=== PATIENT | female | born 1940 | race Caucasian/White ===

== ENCOUNTER 2020-10-24 06:38 | Outpatient (REF) | payer BC, SELFPAY ==
[2020-10-24 11:36] LABS: Alanine Aminotransferase 27 U/L (0-31); Anion Gap 17 (12-20); Aspartate Amino Transferase 33 U/L (5-31); Blood Urea Nitrogen 24 mg/dL (9-16); Calcium 8.9 mg/dL (8.4-10.2); Carbon Dioxide 20 mmol/L (22-29); Chloride 105 mmol/L (96-108); Cholesterol 119 mg/dL; Estimated Glomerular Filt Rate > 60; Glucose Fasting 85 mg/dL (60-99); HDL Cholesterol 56 mg/dL; LDL Cholesterol Calculated 49 mg/dl; Potassium 4.6 mmol/L (3.3-5.1); Sodium 137 mmol/L (135-145); Triglycerides 74 mg/dL
== END 2020-10-24 06:39 | disposition home or self-care (01) ==
LOC: HO.HMGCLDS 06:38
PROVIDERS: PCP Internal Medicine; Visit Provider Internal Medicine
DX: I10 Essential (primary) hypertension (principal); I25.10 Atherosclerotic heart disease of native coronary artery without angina pectoris
CPT/HCPCS: 36415; 80048; 80061; 84450; 84460

== ENCOUNTER 2020-11-18 08:30 | Outpatient (REF) | payer BC, SELFPAY | END 2020-11-18 08:31 | disposition home or self-care (01) | LOC: HO.LAB 08:30 | PROVIDERS: PCP Internal Medicine; Referring Provider Internal Medicine; Visit Provider Surgery | DX: L98.9 Disorder of the skin and subcutaneous tissue, unspecified (principal) | CPT/HCPCS: 11442; 88304; 88305 ==

== ENCOUNTER 2020-11-18 09:51 | Outpatient (REF) | payer MEDICARE, SELFPAY | END 2020-11-18 09:52 | disposition home or self-care (01) | LOC: HO.LNP 09:51 | PROVIDERS: Visit Provider Surgery | DX: L98.9 Disorder of the skin and subcutaneous tissue, unspecified (principal) ==

== ENCOUNTER → 2020-11-26 08:47 | Outpatient (BNVA) | payer MEDICARE, SELFPAY | PROVIDERS: PCP Internal Medicine; Referring Provider Internal Medicine; Visit Provider Surgery | DX: Z48.817 Encounter for surgical aftercare following surgery on the skin and subcutaneous tissue (principal); Z87.2 Personal history of diseases of the skin and subcutaneous tissue | CPT/HCPCS: 99212 ==

== ENCOUNTER 2021-02-23 07:10 | Outpatient (REF) | payer MEDICARE, SELFPAY ==
[2021-02-23 12:07] LABS: Cholesterol 121 mg/dL; HDL Cholesterol 52 mg/dL; LDL Cholesterol Calculated 51 mg/dl; Triglycerides 91 mg/dL
== END 2021-02-23 07:11 | disposition home or self-care (01) ==
LOC: HO.HMGCLDS 07:10
PROVIDERS: PCP Internal Medicine; Visit Provider Internal Medicine Cardiovascular Disease
DX: I25.10 Atherosclerotic heart disease of native coronary artery without angina pectoris (principal)
CPT/HCPCS: 36415; 80061

== ENCOUNTER 2022-02-22 08:03 | Outpatient (REF) | payer MEDICARE, SELFPAY ==
[2022-02-22 12:31] LABS: Cholesterol 118 mg/dL; HDL Cholesterol 55 mg/dL; LDL Cholesterol Calculated 48 mg/dl; Triglycerides 78 mg/dL
== END 2022-02-22 08:04 | disposition home or self-care (01) ==
LOC: HO.HMGCLDS 08:03
PROVIDERS: PCP Internal Medicine; Visit Provider Internal Medicine Cardiovascular Disease
DX: I25.10 Atherosclerotic heart disease of native coronary artery without angina pectoris (principal)
CPT/HCPCS: 36415; 80061

== ENCOUNTER 2023-05-10 08:29 | Outpatient (REF) | payer MEDICARE, SELFPAY ==
[2023-05-10 12:51] LABS: Cholesterol 116 mg/dL (<200); HDL Cholesterol 55 mg/dL (>40); LDL Cholesterol Calculated 43 mg/dL (<100); Triglycerides 92 mg/dL (<150)
== END 2023-05-10 08:30 | disposition home or self-care (01) ==
LOC: HO.HMGCLDS 08:29
PROVIDERS: PCP Internal Medicine; Visit Provider Internal Medicine Cardiovascular Disease
DX: I10 Essential (primary) hypertension (principal)
CPT/HCPCS: 36415; 80061

== ENCOUNTER 2024-10-22 12:11 | Outpatient (AMB) | payer MEDICARE, SELFPAY ==
--- NOTE | 2024-10-22 12:14 | A.OFFPC_ITS ---
Vital Signs 10/22/24 12:15 10/22/24 12:51 Height 5 ft 2 in Weight 143 lb BMI 26.2 BP 158/82 H 135/80 Blood Pressure Location Lt brachial Rt brachial Position Sitting Sitting Respiration 16 Pulse 62 Pulse Source Pulse Oximeter Temp 97.6 F Temp Source Oral Pulse Oximetry (%) 97 Oxygen Delivery Method Room Air Oxygen Flow Rate 97.6 Intake Visit Reasons: re-est care Intake Note: Pt coming in to re establish care. Coordinate Measuring Equipment Operator Required: No Accompanied by: Self / Same As Patient Allergies No Known Allergies Allergy (Verified 10/22/24 12:32) Medication List - Last Reconciled 10/22/24 by Ximena Arita MD ascorbate calcium (vitamin C) 500 mg PO BID aspirin (Adult Low Dose Aspirin) 81 mg PO DAILY atorvastatin 80 mg PO DAILY flaxseed oil 1,000 mg PO DAILY glucosamine HCl 1,500 mg PO DAILY metoprolol succinate ER 25 mg PO DAILY multivitamin 1 tab PO DAILY Tobacco use date assessed: 10/22/24 Fall risk assessment: No Falls in past year Last assessed Fall Risk: 10/22/24 Dental Screening Dental Screen Date: 10/22/24 Did you have a dental visit in the last 12 months?: Yes Did you have a dental problem in the last 6 months where you did not have access to dental care?: No Was dental information given to patient?: Patient has dentist HPI re-est care HPI Details 84 year old lady here today to [facility] care with PCP.. She is a [employer] with past medical history history of coronary artery disease with STEMI, with angiogram showing mid to distal LAD artery rupture , with good runoff and non amenable to revascularization, on medical therapy, followed by her flour tester Dr. Andi Fulton at [facility], has history of hypertension, hyperlipidemia .. Has been compliant with taking her medications currently on aspirin 81 mg daily, atorvastatin 80 mg daily, metoprolol 25 mg ER 1 tablet daily, and flaxseed oil, and multivitamins . She has been feeling well, but was recently seen at the ER at [facility] last 06/07/2024 complaining of some chest pressure/chest tightness occurring intermittently , not accompanied by any shortness of breath, no dizziness and lasts approximately 1-1-1/2 minutes before spontaneously resolving , with all episodes occurring at rest. Patient reports that she has not had any further episodes since that visit at the ER. Has been feeling well with no complaints of chest pain, no fever, no cough, no shortness of breath or lightheadedness, no abdominal pain. Had labs done at [facility] [place] [place] on June 07, 2024 showed normal CBC, serum electrolytes, and renal function are within normal limits [facility] Medical History History of ST elevation myocardial infarction (STEMI) Skin lesion of face Flexor tenosynovitis of finger GERD (gastroesophageal reflux disease) Cataract Essential hypertension CAD (coronary artery disease), [place] coronary artery Surgical History History of excision of lesion History of appendectomy Hx laparoscopic cholecystectomy S/P tonsillectomy H/O arthroscopy of shoulder Hx of cataract surgery Family History Father CHF (congestive heart failure) Mother Stomach cancer Sister Ovarian cancer Social History Housing: Condominium Alcohol intake: never Patient Tobacco Use Status: Never used Tobacco e-Cigarette/Vaping Use: Never Used Second Hand Smoke Exposure: No Questionnaire PHQ-9 Over the last 2 weeks, how often have you been bothered by any of the following problems? 1. Little interest or pleasure in doing things: not at all 2. Feeling down, depressed, or hopeless: not at all 3. Trouble falling or staying asleep, or sleeping too much: not at all 4. Feeling tired or having little energy: not at all 5. Poor appetite or overeating: not at all 6. Feeling bad about yourself - or that you are a failure or have let yourself or your family down: not at all 7. Trouble concentrating on things, such as reading the newspaper or watching television: not at all 8. Moving or speaking so slowly that other people could have noticed. Or the opposite - being so fidgety or restless that you have been moving around a lot more than usual: not at all 9. Thoughts that you would be better off or of hurting yourself in some way: not at all Total score: 0 Depression Screening Interpretation: Negative Depression Screening Done: Yes 75845 - PHQ-9 Billing: Yes Source: Developed by Drs. Petey eB, Miracle Harris, Otilio Alvarado and colleagues, with an educational jessica from [employer]. Thrive Questionnaire Date Thrive assessed: 10/15/20 AMINAH-7 AMB Questionnaire AMINAH-7 Feeling nervous, anxious, or on edge: 0 = Not at all Not being able to stop or control worryin = Not at all Worrying too much about different things: 0 = Not at all Trouble relaxin = Not at all Being so restless that it is hard to sit still: 0 = Not at all Becoming easily annoyed or irritable: 0 = Not at all Feeling afraid as if something awful might happen: 0 = Not at all Total AMINAH-7 score (0-4 normal; 5-9 mild; 10-14 moderate; 15-21 severe): 0 Source: Developed by Drs. Petey Be, Miracle Harris, Otilio Alvarado and colleagues, with an educational jessica from [employer]. AMINAH-7 Assessment Billing AMINAH-7 Assessment Tool: AMINAH-7 Assessment 83988 Review of Systems Const Denies chills, Denies fatigue, Denies fever(s), Denies headache(s), Denies lethargy, Denies malaise and Denies poor appetite ENT Denies dizziness and Denies headache(s) Card Denies chest pain at rest, Denies chest pain with activity, Denies rapid heart rate, Denies irregular heart rhythm, Denies lightheadedness and Denies dyspnea Resp Denies cough and Denies dyspnea GI Reports no additional complaints, Denies hematochezia, Denies change in bowel habits and Denies nausea Neuro Denies dizziness and Denies headache(s) Endo Denies fatigue Physical exam (Primary Care) Vital Signs: Last Vital Signs Temp 97.6 F 10/22/24 12:15 Pulse 62 10/22/24 12:15 Resp 16 10/22/24 12:15 BP 135/80 10/22/24 12:51 Pulse Ox 97 10/22/24 12:15 Oxygen Delivery Method Room Air 10/22/24 12:15 Oxygen Flow Rate 97.6 10/22/24 12:15 BMI result Body Mass Index 26.2 Tobacco/Smoking Status: Tobacco use Status Tobacco use date assessed 10/22/24 10/22/24 12:21 Patient Tobacco Use Status Never used Tobacco 10/22/24 12:14 e-Cigarette/Vaping Use Never Used 10/22/24 12:14 PHQ-9: PHQ-9 Score PHQ-9: Total score 0 10/22/24 12:56 Depression Screening Interpretation: Negative Thrive Assessment: Date of Thrive Assessment Date Thrive assessed 10/15/20 10/22/24 12:14 Const General: comfortable and no acute distress Orientation/consciousness: patient oriented x3 HENMT Ears: external ears normal General nose exam: Normal external nose present, Normal nasal mucous membranes and turbinates present and No nasal discharge present Mouth: Normal oral and palatal mucosa present, oropharynx normal and moist mucous membranes Eyes General: appearance normal, both eyes and all related structures Conjunctivae: conjunctivae normal Pupils: Equal, round and reactive pupils present EOM: EOMs intact bilaterally Neck Neck: Yes full ROM, Yes no lymphadenopathy and Yes supple Resp Effort & Inspection: normal respiratory effort and able to speak in complete sentences Auscultation: clear to auscultation bilaterally Cardio Rate: regular rate Rhythm: regular rhythm Heart sounds: S1 normal heart sound present and S2 normal heart sound present GI Inspection: Yes normal to inspection Palpation (GI): Soft to palpation, nontender and no masses Auscultation: normal bowel sounds Neuro General: patient oriented x3, gait normal, tone normal, moves all extremities, Normal light touch and pain sensation and no focal motor deficits Cranial nerves: Yes Equal, round and reactive pupils present Cognition (Neuro): normal cognition Gait exam (Neuro): Normal gait present Extrem General: Yes full ROM, Yes no joint enlargement, Yes no clubbing, cyanosis or edema, Yes no pedal edema and Yes normal gait Psych Appearance: grossly normal Mental Status: mental status grossly normal Speech and movement: Normal speech and movement present Affect: normal affect Attitude: cooperative Thought process: Normal thought process present Thought content: Normal thought content present Coding Level of Care Code New Pt Level 4 (85693) Diagnoses CAD (coronary artery disease), [place] coronary artery I25.10 Essential hypertension I10 Additional Codes AMINAH-7 Assessment Billing - AMINAH-7 Assessment Tool: AMINAH-7 Assessment 10463 ([id number]) PHQ-9 - 88480 - PHQ-9 Billing: Yes ([id number]) Assessment & Plan Assessment & Plan (1) CAD (coronary artery disease), [place] coronary artery: Comment: Followed by Dr. Andi Fulton Code(s): I25.10 - Atherosclerotic heart disease of [place] coronary artery without angina pectoris Category: Medical Plan: Currently on aspirin 81 mg daily and atorvastatin 80 mg daily to get flaxseed oil and metoprolol succinate ER 25 mg daily (2) Essential hypertension: Code(s): I10 - Essential (primary) hypertension Category: Medical Plan: Blood pressure within acceptable limits, currently on metoprolol succinate ER 25 mg daily currently followed by [facility] Orders: Orders Glucose Fasting 10/23/24 I10 - Essential (primary) hypertension, I25.10 - Atherosclerotic heart disease of [place] coronary artery without angina pectoris, Z78.0 - Asymptomatic menopausal state Lipid Panel 10/23/24 I10 - Essential (primary) hypertension, I25.10 - Atherosclerotic heart disease of [place] coronary artery without angina pectoris, Z78.0 - Asymptomatic menopausal state Vitamin D 25-OH Total 10/23/24 I10 - Essential (primary) hypertension, I25.10 - Atherosclerotic heart disease of [place] coronary artery without angina pectoris, Z78.0 - Asymptomatic menopausal state
[2024-10-22 12:15] VITALS: BP 158/82; PULSE 62; RESP 16; TEMP 36.4; O2SAT 97; BMI 26.2
[2024-10-22 12:51] VITALS: BP 135/80
--- OUTSIDE RECORDS SUMMARY | 2024-10-22 13:17 | XMS_ITS | Clinical Summary ---
Author Organization [facility] Address [address] [place] [address] Phone Care Team Providers Care Disability Insurance Hearing Officer Name Role Phone Ximena Arita MD Primary Care Provider Allergies No known active allergies Medications ASPIRIN ORAL Take 81 mg by mouth daily. Active HAWTHORN ORAL 1 tab daily Acti ve glucosamine/cho ndroitin/C/Cole (GLUCOSAMINE 1500 COMPLEX ORAL) 3 tabs daily Active flaxseed oiL 1,000 mg capsule 1 capsule tid Active MULTIVITAMIN ORAL 1 tab 2-3x daily Active ascorbic acid (VITAMIN C ORAL) VITAMIN C 500 MG OR TABS 1 TABLET TWICE DAILY Active turmeric (CURCUMIN MISC) 1,000 mcg 1 (one) time each day. Active metoprolol succinate (TOPROL-XL) 25 mg 24 hr tablet Take 1 tablet by mouth once daily 90 tablet 3 04/15/2024 Active atorvastatin (LIPITOR) 80 mg tablet Take 1 tablet by mouth once daily 90 tablet 3 04/15/2024 Active Active Problems Problem Noted Date Diagnosed Date Hypercholesterolemia 03/17/2024 Assessment & Plan (03/18/2024 4:30 PM EST): Pt doing well on high-dose atorvastatin therapy. LDL 43 mg/dl. No change. Orders: ECG 12 lead Coronary artery disease invo lving [place] coronary artery of [place] heart without angina pectoris 09/11/2020 Assessment & Plan (03/18/2024 4:30 PM EST): Known CAD, prior LAD PCI, residual mid-vessel moderate lesion. No active angina. Continue secondary prevention. Orders: ECG 12 lead Essential hypertension 04/07/2008 Assessment & Plan (03/18/2024 4:30 PM EST): BP has generally been well controlled. 140/68 today, HR 56. Continue to monitor. No changes in Rx today. Orders: ECG 12 lead Gastroesophageal reflux disease without esophagi tis 04/07/2008 Assessment & Plan (03/18/2024 4:30 PM EST): No ongoing symptoms of GERD. Continue dietary approach. Orders: ECG 12 lead Surgical History Surgery Date Site/Laterality Comments APPENDECTOMY PROCEDURE: HISTORICAL APPENDECTOMY TONSILLECTOMY PROCEDURE: HISTORICAL TONSILLECTOMY SHOULDER SURGERY PROCEDURE: HISTORICAL SHOULDER SURGERY Family History Medical History Relation Name Comments Heart failure Father Other cancer Mother Stomach Other cancer Sister 1 Ovarian Relation Name Status Comments Father Mother Sister 1 Sister 2 Social History Tobacco Use Types Packs/Day Years Used Date Smoking Tobacco: Never Smokeless Tobacco: Never Alcohol Use Standard Drinks/Week Comments No 0 (1 standard drink = 0.6 oz pur e alcohol) Comments Unknown Sex and Gender Information Value Date Recorded Sex Assigned at Not on file Legal Sex Female 6:04 PM EST Gender Identity Not on file Sexual Orientation Not on file Obstetrics History Last Filed Vital Signs Vital Sign Reading Time Taken Comments Blood Pressure 140/68 03/18/2024 3:32 PM EST Pulse 57 03/18/2024 3:32 PM EST Temperature - - Respiratory Rate - - Oxygen Saturation 99% 03/18/2024 3:32 PM EST Inhaled Oxygen Concentration - - Weight 65 kg (143 lb 3.2 oz) 03/18/2024 3:32 PM EST Height 157.5 cm (5' 2 ) 03/18/2024 3:32 PM EST Body Mass Index 26.19 03/18/2024 3:32 PM EST Plan of Treatment Health Maintenance Due Date Last Done Comments DTaP,Tdap,and Td Vaccines (1 - Tdap) 1959 Pneumococcal Vaccine: 50+ Years (1 of 1 - PCV) 1989 Zoster Vaccines (1 of 2) 1989 RSV Immunization Adult Patients (1 - 1-dose 75+ series) 2014 Falls Risk Assessment 03/05/2022 Medicare Annual Wellness Visit 03/05/2022 Osteoporosis Screening (Bone Density Screening) 03/05/2022 Social Influencers of Health Screening 03/05/2022 Hypertension/CHF/CAD Annual BMP Blood Test 03/12/2022 Depression Screening 04/03/2024 COVID-19 Vaccine ( season) 2024 12/09/2023, 12/29/2022, 03/02/2022, Additional history exists Influenza Vaccine (#1) 2024 Cholesterol Screening (Lipid Panel) 05/10/2028 05/10/2023 HIB Vaccines Aged Out No longer eligi ble based on patient's age to complete this topic HPV Vaccines Aged Out No longer eligi ble based on patient's age to complete this topic Hepatitis A Vaccines Aged Out No long er eligible based on patient's age to complete this topic Hepatitis B Vaccines Aged Out No long er eligible based on patient's age to complete this topic IPV Vaccines Aged Out No longer eligi ble based on patient's age to complete this topic MMR Vaccines Aged Out No longer eligi ble based on patient's age to complete this topic Meningococcal ACWY Vaccine Aged Out N o longer eligible based on patient's age to complete this topic Meningococcal B Vaccine Aged Out No l onger eligible based on patient's age to complete this topic RSV Immunization Patients Under 20 months Aged Out No longer eligible based on patient's age to complete this topic Varicella Vaccines Aged Out No longer eligible based on patient's age to complete this topic Procedures Procedure Name Priority Date/Time Associated Diagnosis Comments LIPID PANEL Routine 05/10/2023 from Last 3 Months or Most Recently Relevant to Health Maintenance Results * Lipid panel (05/10/2023) Triglycerides 92 <=150 mg/dL Cholesterol 116 <=200 mg/dL HDL 55 >=40 mg/dL LDL Cholesterol 43 <=100 mg/dL Blood Venous blood specimen / Unknown Historical Provider LAB BLOOD ORDERABLES Norma l Result from Last 3 Months or Most Recently Relevant to Health Maintenance Insurance Member Subscriber Plan / Payer (Ef fective 2022-Present) Name:Demetra Mckenna Relation to Subscriber:Self Name:Demetra Mckenna Payer ID:[id number] Group ID:[id number] Type:Not on file Address: [place] [address] [id number] Care Teams Disability Insurance Hearing Officer Relationship Specialty Start Date End Date Ximena Arita MD [address] [facility] [place] [id number] PCP - General Internal Medicine 09/23/20
== END 2024-10-22 12:49 | disposition home or self-care (01) ==
LOC: HO.HMCC 12:12
PROVIDERS: PCP Internal Medicine; Visit Provider Internal Medicine
DX: I25.10 Atherosclerotic heart disease of native coronary artery without angina pectoris (principal); I10 Essential (primary) hypertension

== ENCOUNTER → 2024-10-22 12:11 | Outpatient (BNVA) | payer MEDICARE, SELFPAY | PROVIDERS: PCP Internal Medicine; Visit Provider Internal Medicine | DX: I25.10 Atherosclerotic heart disease of native coronary artery without angina pectoris (principal); I10 Essential (primary) hypertension | CPT/HCPCS: 96127; 99202 ==

== ENCOUNTER 2024-10-23 06:42 | Outpatient (REF) | payer MEDICARE, SELFPAY ==
--- OUTSIDE RECORDS SUMMARY | 2024-10-23 06:45 | XMS_ITS | Clinical Summary ---
Author Organization [facility] [employer] [facility] Address [address] [place] [address] Phone Care Team Providers Care Synchronizer Name Role Phone Ximena Arita MD Primary [...] 12 lead Coronary artery disease invo lving [place] coronary artery of [place] heart without angina pectoris 09/11/2020 Assessment & [...] ID:[id number] Group ID:[id number] Type:Not on file Address: [place] [address] [address] [id number] Care Teams Synchronizer Relationship Specialty Start Date End Date Ximena Arita MD [address] [facility] [place] [id number] PCP - General Internal Medicine 09/23/20
[2024-10-23 11:09] LABS: Cholesterol 103 mg/dL (<200); HDL Cholesterol 54 mg/dL (>40); Triglycerides 67 mg/dL (<150)
== END 2024-10-23 06:43 | disposition home or self-care (01) ==
LOC: HO.HMGCLDS 06:42
PROVIDERS: PCP Internal Medicine; Visit Provider Internal Medicine
DX: I10 Essential (primary) hypertension (principal); I25.10 Atherosclerotic heart disease of native coronary artery without angina pectoris; Z78.0 Asymptomatic menopausal state
CPT/HCPCS: 36415; 80061; 82306; 82947